=== PATIENT | female | born 1965 | race Caucasian/White ===

== ENCOUNTER → 2016-08-12 | Outpatient (CLI) | payer MEDICAID ==
[~2016-08-12] MED LIST: ACETAMINOPHEN325 MG PO; ARIPIPRAZOLE10 MG PO; CIPRO500 MG PO; COMBIVENT RESPIM4 GM INH; FLONASE 50 MCG/16 GM NOSE; KLONOPIN1 M1 PO; LAMICTAL25 MG PO; LIBRIUM10 MG PO; NEURONTIN600 MG PO; NORVASC5 MG PO; PREMARIN VAG30 GM VAG; PROZAC10 MG PO; PROZAC20 MG PO; RELPAX40 MG; RELPAX40 MG PO; RISPERDAL0.5 MG PO; RISPERDAL1 MG PO; RITALIN PO; ULTRAM50 MG PO; ZANAFLEX4 MG PO; ZOFRAN4 MG PO; ZYPREXA10 MG PO
== END | disposition disaster alternative care site (69) ==
LOC: GRAD 07:53
DX: M54.5 Low back pain (principal); M48.06 Spinal stenosis, lumbar region; M47.896 Other spondylosis, lumbar region

== ENCOUNTER → 2016-11-18 | Outpatient (CLI) | payer MEDICAID | END | disposition disaster alternative care site (69) | LOC: GRAD 10:45 | DX: M48.02 Spinal stenosis, cervical region (principal); M47.12 Other spondylosis with myelopathy, cervical region; M47.22 Other spondylosis with radiculopathy, cervical region ==